=== PATIENT | female | born 1965 | race Caucasian/White ===

== ENCOUNTER 2016-09-11 17:10 | Emergency (ER) | payer OTHER ==
[~2016-09-11] VITALS: Ht 149.9 cm; Wt 64.5 kg
[~2016-09-11 17:10] MED LIST: LORA1TAB3 PO
[2016-09-11] MEDS ORDERED: NYQUIL PO (17:31)
[2016-09-11] MEDS ORDERED: GUAIF10 PO (17:31)
[2016-09-11 19:22] LABS: APPEARANCE,URINE CLEAR (CLEAR); GLUCOSE, URINE (UA) NEGATIVE (NEGATIVE); KETONES,URINE NEGATIVE (NEGATIVE); OCCULT BLOOD,URINE NEGATIVE (NEGATIVE); PH,URINE 5.5 (5.0-8.0); PROTEIN,URINE NEGATIVE (NEGATIVE)
[2016-09-11 19:27] LABS: LEUKOCYTE ESTERASE ,URINE TRACE (NEGATIVE); RBC,URINE 0-2 /HPF (0-2); SQUAMOUS EPITHELIAL CELL,UR Few /LPF (None Seen)
[2016-09-11] MEDS ORDERED: KETOROLAC TROMETHAMINE 30 MG/ML VIAL IVP ONE (19:45)
[2016-09-11] MEDS ORDERED: ONDANSETRON HCL 4 MG/2 ML VIAL IVP ONE (19:45)
[2016-09-11] MEDS ORDERED: SODIUM CHLORIDE 0.9% 1,000 ML IV ONE (19:45)
[2016-09-11] MEDS ORDERED: GuaiFENesin/D-METHORPHAN [SUGAR-FREE] 200-20MG/10 ML SYRUP UDCUP PO ONE (20:15)
[2016-09-11 20:37] LABS: INFLUENZA TYPE B NEGATIVE FOR TYPE B (NEGATIVE)
[2016-09-11 20:59] VITALS: BP 105/70
== END 2016-09-11 21:00 | disposition home or self-care (01) ==
LOC: EMS 17:12
DX: J06.9 Acute upper respiratory infection, unspecified (principal)
CPT/HCPCS: 71010; 81001; 84703; 87804; 96361; 96374; 96375; 99285; J1885; J2405; J7030